=== PATIENT | male | born 1975 ===

== ENCOUNTER 2019-05-27 20:33 | Emergency (ER) | payer MEDICARE, MEDICAID ==
[2019-05-27 21:38] LABS: CHLORIDE,CL 104 mmol/L (101-111); SODIUM,NA 138 mmol/L (135-145)
--- NOTE | 2019-05-27 21:38 | EDM.PDOCBH ---
ED HPI GENERAL MEDICAL PROBLEM - General Chief Complaint: Behavioral/Psych Stated Complaint: SUICIDE THOUGHTS Time Seen by Provider: 05/27/19 20:40 Source of Information: Reports: Patient, Significant Other History Limitations: Reports: No Limitations - History of Present Illness INITIAL COMMENTS - FREE TEXT/NARRATIVE: ED with c/o of having suicidal thoughts, worse past week, Patient and friend drinking more frequently and heavier amounts. Last ETOH 1/2 beer last night. Has been at lest 2-3 times per week of 1/2 of large bottle of rum or vodka. Getting into arguments with outsole caser, payee and co workers. States, plan to by drinking to much. Hx remote OD on his medication years ago. States he has been taking medications as prescribed. Denies other drug use. Does not smoke. Last psych in March for medication renewal. Does not have counselor. - Related Data Allergies Allergy/AdvReac Type Severity Reaction Status Date / Time No Known Allergies Allergy Verified 05/27/19 20:49 Home Meds: Home Meds Albuterol [Ventolin HFA] 1 puff INH Q4H PRN 02/17/14 [History] risperiDONE [RisperiDAL] 1.5 mg PO BEDTIME 02/17/14 [History] Escitalopram [Lexapro] 10 mg PO DAILY 06/09/14 [History] ARIPiprazole [Aripiprazole] 2 mg PO DAILY 05/27/19 [History] Aspirin 81 mg PO DAILY 05/27/19 [History] Dapagliflozin Propanediol [Farxiga] 10 mg PO DAILY 05/27/19 [History] Insulin Aspart [NovoLOG] 10 unit SQ TIDMEALS 05/27/19 [History] Insulin Glarg,Human.Rec.Analog [Lantus] 24 unit SUBCUT BEDTIME 05/27/19 [History ] Linaclotide [Linzess] 145 mcg PO DAILY 05/27/19 [History] hydrOXYzine HCl [hydrOXYzine] 25 mg PO DAILY PRN 05/27/19 [History] metFORMIN HCl [Metformin HCl] 1,000 mg PO BID 05/27/19 [History] Past Medical History Other HEENT History: wears glasses Cardiovascular History: Reports: None Respiratory History: Reports: Asthma Gastrointestinal History: Reports: None Genitourinary History: Reports: Renal Calculus Musculoskeletal History: Reports: None Neurological History: Reports: None Psychiatric History: Reports: Depression, Psychosis, Schizophrenia Endocrine/Metabolic History: Reports: Diabetes, Type II Hematologic History: Reports: None Immunologic History: Reports: None Oncologic (Cancer) History: Reports: None Dermatologic History: Reports: None - Infectious Disease History Infectious Disease History: Reports: None - Past Surgical History Head Surgeries/Procedures: Reports: None Social & Family History - Family History Family Medical History: Unobtainable - Tobacco Use Smoking Status *Q: Former Smoker Used Tobacco, but Quit: No - Caffeine Use Caffeine Use: Reports: Soda - Alcohol Use Date of Last Drink: 05/26/19 - Recreational Drug Use Recreational Drug Use: No - Living Situation & Occupation Living situation: Reports: Single, Alone ED ROS GENERAL - Review of Systems Review Of Systems: ROS reveals no pertinent complaints other than HPI. ED EXAM, BEHAVIORAL HEALTH - Physical Exam Exam: See Below Exam Limited By: No Limitations General Appearance: Alert, No Apparent Distress Eye Exam: Bilateral Eye: EOMI, PERRL Ears: Normal External Exam, Hearing Grossly Normal Nose: Normal Inspection Throat/Mouth: Normal Oropharynx Head: Atraumatic, Normocephalic Respiratory/Chest: No Respiratory Distress, Lungs Clear Cardiovascular: Regular Rate, Rhythm Extremities: Normal Range of Motion Neurological: Alert, Normal Gait, Oriented x 3. No: Normal Cognition (mild cognitve defecit) Psychiatric: Alert, Normal Affect, Normal Mood, Oriented, Suicidal Thoughts. No : Poor Eye Contact, Auditory Hallucinations, Visual Hallucinations, Pressured Speech, Paranoid Thoughts, Threatening Behavior Skin Exam: Warm, Dry, Intact, Normal color COURSE, BEHAVIORAL HEALTH COMP - Course Vital Signs: Last Vital Signs Temp 97.6 F 05/27/19 22:54 Pulse 86 05/27/19 22:54 Resp 18 05/27/19 22:54 BP 125/69 05/27/19 22:54 Pulse Ox 100 05/27/19 22:54 Orders, Labs, Meds: Laboratory Tests 05/27/19 05/27/19 05/27/19 Range/Units 21:11 21:11 21:13 WBC 10.9 H (5.0-10.0) 10^3/uL RBC 5.34 (4.6-6.2) 10^6/uL Hgb 14.7 (14.0-18.0) g/dL Hct 45.9 (40.0-54.0) % MCV 86.0 (80-100) fL MCH 27.5 (27.0-34.0) pg MCHC 32.0 L (33.0-35.0) g/dL Plt Count 277 (150-450) 10^3/uL Neut % (Auto) 57.9 (42.2-75.2) % Lymph % (Auto) 28.4 (20.5-50.1) % Esmeralda % (Auto) 10.1 H (2-8) % Eos % (Auto) 3.0 (1.0-3.0) % Baso % (Auto) 0.6 (0.0-1.0) % Sodium 138 (135-145) mmol/L Potassium 4.0 (3.6-5.0) mmol/L Chloride 104 (101-111) mmol/L Carbon Dioxide 25.0 (21.0-31.0) mmol/L Anion Gap 13.0 BUN 8 (7-18) mg/dL Creatinine 0.7 (0.6-1.3) mg/dL Est Cr Clr Drug Dosing 134.67 mL/min Estimated GFR (MDRD) > 60 BUN/Creatinine Ratio 11.42 Glucose 241 H (74-105) mg/dL Calcium 8.9 (8.4-10.2) mg/dl Total Bilirubin 0.7 (0.2-1.0) mg/dL AST 23 (10-42) IU/L ALT 21 (10-60) IU/L Alkaline Phosphatase 47 (42-121) IU/L Total Protein 6.6 L (6.7-8.2) g/dl Albumin 3.8 (3.2-5.5) g/dl Globulin 2.8 Albumin/Globulin Ratio 1.36 Urine Color Yellow (YELLOW) Urine Appearance Clear (CLEAR) Urine pH 5.5 (5.0-9.0) Ur Specific Orcas 1.015 (1.005-1.030) Urine Protein Negative (NEGATIVE) Urine Glucose (UA) 500 H (NEGATIVE) Urine Ketones Negative (NEGATIVE) Urine Occult Blood Negative (NEGATIVE) Urine Nitrite Negative (NEGATIVE) Urine Bilirubin Negative (NEGATIVE) Urine Urobilinogen 2.0 H (0.2-1.0) mg/dL Ur Leukocyte Esterase Negative (NEGATIVE) Salicylates < 4 mg/dL Urine Opiates Screen (NEGATIVE) Ur Oxycodone Screen (NEGATIVE) Urine Methadone Screen (NEGATIVE) Acetaminophen < 10 ug/mL Ur Barbiturates Screen (NEGATIVE) U Tricyclic Antidepress (NEGATIVE) Ur Phencyclidine Scrn (NEGATIVE) Ur Amphetamine Screen (NEGATIVE) U Methamphetamines Scrn (NEGATIVE) Urine MDMA Screen (NEGATIVE) U Benzodiazepines Scrn (NEGATIVE) Urine Cocaine Screen (NEGATIVE) U Marijuana (THC) Screen (NEGATIVE) Ethyl Alcohol < 5 mg/dL 05/27/19 Range/Units 21:13 WBC (5.0-10.0) 10^3/uL RBC (4.6-6.2) 10^6/uL Hgb (14.0-18.0) g/dL Hct (40.0-54.0) % MCV (80-100) fL MCH (27.0-34.0) pg MCHC (33.0-35.0) g/dL Plt Count (150-450) 10^3/uL Neut % (Auto) (42.2-75.2) % Lymph % (Auto) (20.5-50.1) % Esmeralda % (Auto) (2-8) % Eos % (Auto) (1.0-3.0) % Baso % (Auto) (0.0-1.0) % Sodium (135-145) mmol/L Potassium (3.6-5.0) mmol/L Chloride (101-111) mmol/L Carbon Dioxide (21.0-31.0) mmol/L Anion Gap BUN (7-18) mg/dL Creatinine (0.6-1.3) mg/dL Est Cr Clr Drug Dosing mL/min Estimated GFR (MDRD) BUN/Creatinine Ratio Glucose (74-105) mg/dL Calcium (8.4-10.2) mg/dl Total Bilirubin (0.2-1.0) mg/dL AST (10-42) IU/L ALT (10-60) IU/L Alkaline Phosphatase (42-121) IU/L Total Protein (6.7-8.2) g/dl Albumin (3.2-5.5) g/dl Globulin Albumin/Globulin Ratio Urine Color (YELLOW) Urine Appearance (CLEAR) Urine pH (5.0-9.0) Ur Specific Orcas (1.005-1.030) Urine Protein (NEGATIVE) Urine Glucose (UA) (NEGATIVE) Urine Ketones (NEGATIVE) Urine Occult Blood (NEGATIVE) Urine Nitrite (NEGATIVE) Urine Bilirubin (NEGATIVE) Urine Urobilinogen (0.2-1.0) mg/dL Ur Leukocyte Esterase (NEGATIVE) Salicylates mg/dL Urine Opiates Screen Negative (NEGATIVE) Ur Oxycodone Screen Negative (NEGATIVE) Urine Methadone Screen Negative (NEGATIVE) Acetaminophen ug/mL Ur Barbiturates Screen Negative (NEGATIVE) U Tricyclic Antidepress Negative (NEGATIVE) Ur Phencyclidine Scrn Negative (NEGATIVE) Ur Amphetamine Screen Negative (NEGATIVE) U Methamphetamines Scrn Negative (NEGATIVE) Urine MDMA Screen Negative (NEGATIVE) U Benzodiazepines Scrn Negative (NEGATIVE) Urine Cocaine Screen Negative (NEGATIVE) U Marijuana (THC) Screen Negative (NEGATIVE) Ethyl Alcohol mg/dL Medications Discontinued Medications Generic Name Dose Route Start Last Admin Trade Name Freq PRN Reason Stop Dose Admin Insulin Human Regular 5 unit 05/27/19 22:47 05/27/19 22:56 Humulin R IV 05/27/19 22:48 Not Given ONETIME ONE Insulin Human Regular 5 unit 05/27/19 22:48 05/27/19 22:55 Humulin R IM 05/27/19 22:49 5 unit ONETIME ONE Administration Re-Assessment/Re-Exam: Debora, faculty i on call medical assistant Crisis Counselor From [facility] here assess patient,. Departure - Departure Time of Disposition: 22:23 Disposition: DC/Tfer to Other 70 Condition: Good Clinical Impression: Alcohol abuse, Verbalizes suicidal thoughts, Noncompliance w/medication treatment due to intermit use of medication - Discharge Information *PRESCRIPTION DRUG MONITORING PROGRAM REVIEWED*: No *COPY OF PRESCRIPTION DRUG MONITORING REPORT IN PATIENT RUBEN: No Instructions: Substance Use Disorder and Mental Illness Referrals: PCP,Unobtain [Primary Care Provider] - Forms: ED Department Discharge Additional Instructions: Don't drink alcohol Take medications as prescribed Follow up with Mental Health Provider
[2019-05-27 21:39] LABS: ACETAMINOPHEN < 10 ug/mL
[2019-05-27] MEDS ORDERED: Insulin Regular, Human 100 Units/ML 3 ML Vial IV ONE (22:47)
[2019-05-27] MEDS ORDERED: Insulin Regular, Human 100 Units/ML 3 ML Vial IM ONE (22:48)
[2019-05-27 22:54] VITALS: BP 125/69; PULSE 86
== END 2019-05-27 23:30 | disposition other institution (70) ==
LOC: DL.ED 20:33
DX: F10.10 Alcohol abuse, uncomplicated (principal); R45.851 Suicidal ideations; J45.909 Unspecified asthma, uncomplicated; E11.9 Type 2 diabetes mellitus without complications; F20.9 Schizophrenia, unspecified; F32.9 Major depressive disorder, single episode, unspecified; Z79.4 Long term (current) use of insulin; Z79.82 Long term (current) use of aspirin; Z79.899 Other long term (current) drug therapy; Z87.891 Personal history of nicotine dependence; Z91.14 Patient's other noncompliance with medication regimen
CPT/HCPCS: 36415; 80053; 80305; 81003; 82962; 85025; 99285; G0480; J1815; 99283

== ENCOUNTER 2020-05-19 01:44 | Emergency (ER) | payer MEDICARE, MEDICAID ==
--- NOTE | 2020-05-19 02:08 | EDM.PDOC ---
ED HPI GENERAL MEDICAL PROBLEM - General Stated Complaint: AMBULANCE Time Seen by Provider: 05/19/20 02:06 Source of Information: Reports: Patient History Limitations: Reports: No Limitations - History of Present Illness INITIAL COMMENTS - FREE TEXT/NARRATIVE: N&V past few days and BS been high. pain epiG region. - Related Data Allergies Allergy/AdvReac Type Severity Reaction Status Date / Time No Known Allergies Allergy Verified 05/19/20 02:42 Home Meds: Home Meds Escitalopram [Lexapro] 20 mg PO DAILY 06/09/14 [History] ARIPiprazole [Aripiprazole] 5 mg PO DAILY 05/27/19 [History] Aspirin 81 mg PO DAILY 05/27/19 [History] Dapagliflozin Propanediol [Farxiga] 10 mg PO DAILY 05/27/19 [History] Insulin Aspart [NovoLOG] 9 unit SQ TIDMEALS 05/27/19 [History] Insulin Glarg,Human.Rec.Analog [Lantus] 33 unit SUBCUT BEDTIME 05/27/19 [History] hydrOXYzine HCL [hydrOXYzine] 25 mg PO DAILY PRN 05/27/19 [History] metFORMIN HCl [Metformin HCl] 1,000 mg PO BID 05/27/19 [History] Ibuprofen 600 mg PO Q6H PRN 05/19/20 [History] Nutritional Supplements Tabs 4 tab PO ASDIRECTED PRN 05/19/20 [History] Rosuvastatin [Crestor] 5 mg PO DAILY 05/19/20 [History] Sildenafil [Viagra] 50 mg PO ASDIRECTED PRN 05/19/20 [History] Past Medical History Other HEENT History: wears glasses Cardiovascular History: Reports: None Respiratory History: Reports: Asthma Gastrointestinal History: Reports: None Genitourinary History: Reports: Renal Calculus Musculoskeletal History: Reports: None Neurological History: Reports: None Psychiatric History: Reports: Depression, Psychosis, Schizophrenia Endocrine/Metabolic History: Reports: Diabetes, Type II Hematologic History: Reports: None Immunologic History: Reports: None Oncologic (Cancer) History: Reports: None Dermatologic History: Reports: None - Infectious Disease History Infectious Disease History: Reports: None - Past Surgical History Head Surgeries/Procedures: Reports: None Social & Family History - Family History Family Medical History: Unobtainable - Caffeine Use Caffeine Use: Reports: Soda - Living Situation & Occupation Living situation: Reports: Single, Alone ED ROS GENERAL - Review of Systems Review Of Systems: Comprehensive ROS is negative, except as noted in HPI. ED EXAM, GI/ABD - Physical Exam Exam: See Below Exam Limited By: No Limitations General Appearance: Alert, WD/WN, Mild Distress, Other (discomfort). No: Active Emesis Ears: Hearing Grossly Normal Throat/Mouth: Normal Voice, No Airway Compromise Head: Atraumatic Neck: Non-Tender, Full Range of Motion Respiratory/Chest: No Respiratory Distress Cardiovascular: Regular Rate, Rhythm GI/Abdominal Exam: Tender, Other (epiG region). No: Distended, Guarding, Rebound (Male) Exam: Deferred Rectal (Males) Exam: Deferred Neurological: Alert, Oriented, Normal Cognition, Normal Gait, No Motor/Sensory Deficits Psychiatric: Normal Affect, Normal Mood Skin Exam: Warm, Dry, Normal Color Lymphatic: No Adenopathy Course - Vital Signs Last Recorded V/S: Last Vital Signs Temp 37.4 C 05/19/20 01:45 CLASSIFICATION COUNSELOR Pulse 101 H 05/19/20 01:45 CLASSIFICATION COUNSELOR Resp 14 05/19/20 01:45 CLASSIFICATION COUNSELOR BP 114/79 05/19/20 01:45 CLASSIFICATION COUNSELOR Pulse Ox 98 05/19/20 01:45 CLASSIFICATION COUNSELOR - Orders/Labs/Meds Orders: Active Orders 24 hr Category Date Time Status Blood Glucose Check, Bedside [RC] ONETIME Care 05/19/20 02:07 Active Labs: Laboratory Tests 05/19/20 05/19/20 05/19/20 Range/Units 02:30 02:30 03:02 WBC 7.7 (5.0-10.0) 10^3/uL RBC 5.62 (4.6-6.2) 10^6/uL Hgb 15.5 (14.0-18.0) g/dL Hct 47.3 (40.0-54.0) % MCV 84.2 (80-100) fL MCH 27.6 (27.0-34.0) pg MCHC 32.8 L (33.0-35.0) g/dL Plt Count 172 D (150-450) 10^3/uL Neut % (Auto) 62.4 (42.2-75.2) % Lymph % (Auto) 24.9 (20.5-50.1) % Garland % (Auto) 12.0 H (2-8) % Eos % (Auto) 0.4 L (1.0-3.0) % Baso % (Auto) 0.3 (0.0-1.0) % Sodium 135 L (136-145) mmol/L Potassium 4.2 (3.5-5.1) mmol/L Chloride 98 (98-107) mmol/L Carbon Dioxide 27 (21-32) mmol/L Anion Gap 14.2 H (7-13) mEq/L BUN 10 (7-18) mg/dL Creatinine 0.90 (0.70-1.30) mg/dL Est Cr Clr Drug Dosing 100.28 mL/min Estimated GFR (MDRD) > 60 BUN/Creatinine Ratio 11.1 (No establ ref range) Glucose 235 H (74-99) mg/dL POC Glucose 241 H (70-105) mg/dl Calcium 8.9 (8.5-10.1) mg/dL Total Bilirubin 0.4 (0.2-1.0) mg/dL AST 43 H (15-37) U/L ALT 60 (16-63) U/L Alkaline Phosphatase 64 (46-116) U/L Total Protein 7.2 (6.4-8.2) g/dL Albumin 3.6 (3.4-5.0) g/dL Globulin 3.6 Albumin/Globulin Ratio 1.0 Amylase 39 (25-115) U/L Lipase 77 (73-393) U/L Ketones Small-20 mg/dl - Re-Assessments/Exams Free Text/Narrative Re-Assessment/Exam: 05/19/20 03:21 results discussed with pt who is feeling fine presently. Departure - Departure Time of Disposition: 03:22 Disposition: Home, Self-Care 01 Condition: Good Clinical Impression: Vomiting, Hyperglycemia - Discharge Information Instructions: Hyperglycemia, [id number] Forms: ED Department Discharge Additional Instructions: 1) monitor your blood sugar closely 2) take your meds as directed 3) avoid solid foods next 24 hours 4) follow up at clinic Sepsis Event Note (ED) - Focused Exam Vital Signs: Vital Signs Temp Pulse Resp BP Pulse Ox 05/19/20 01:45 CLASSIFICATION COUNSELOR 37.4 C 101 H 14 114/79 98 - My Orders Last 24 Hours: My Active Orders 05/19/20 02:07 Blood Glucose Check, Bedside [RC] ONETIME - Assessment/Plan Last 24 Hours: My Active Orders 05/19/20 02:07 Blood Glucose Check, Bedside [RC] ONETIME
[2020-05-19 02:30] VITALS: BP 114/79; PULSE 101
[2020-05-19 03:04] LABS: ANION GAP 14.2 mEq/L (7-13); CHLORIDE,CL 98 mmol/L (98-107); SODIUM,NA 135 mmol/L (136-145)
== END 2020-05-19 03:32 | disposition home or self-care (01) ==
LOC: DL.ED 01:44
DX: E11.65 Type 2 diabetes mellitus with hyperglycemia (principal); J45.909 Unspecified asthma, uncomplicated; F32.9 Major depressive disorder, single episode, unspecified; Z79.82 Long term (current) use of aspirin; Z79.899 Other long term (current) drug therapy; Z79.4 Long term (current) use of insulin
CPT/HCPCS: 36415; 80053; 82009; 82150; 82962; 83690; 85025; 99285

== ENCOUNTER 2020-09-18 02:27 | Emergency (ER) | payer MEDICARE, MEDICAID ==
[2020-09-18] MEDS ORDERED: Albuterol/Ipratropium 3.0-0.5 MG/3 ML Neb Soln NEB ONE (02:30)
[2020-09-18 02:42] VITALS: BP 121/72; PULSE 106
--- NOTE | 2020-09-18 02:42 | EDM.PDOC ---
ED HPI GENERAL MEDICAL PROBLEM - General Chief Complaint: Respiratory Problem Stated Complaint: AMBULANCE Time Seen by Provider: 09/18/20 02:37 Source of Information: Reports: Patient, EMS, RN, RN Notes Reviewed History Limitations: Reports: No Limitations - History of Present Illness INITIAL COMMENTS - FREE TEXT/NARRATIVE: Patient presents to the ED via EMS with complaints of shortness of breath. The patient reports a history of asthma for which he is prescribed Albuterol for rescue therapy; he denies abortive therapy. He states he was examined in the clinic yesterday, 09/17/20, and his prescription for Albuterol was refilled, however he forgot to pick it up. He states his shortness of breath occurred this evening at approximately 2200 when he went to lay down in bed. He called for EMS services as he is currently out of his prescription. He denies recent illness, fever, shaking chills, sore throat, chest pain, palpitations, or dyspepsia. He does attest to dry, non-productive cough. The patient reports he received a dose of Albuterol via [facility] and has noted an ease in his breathing. Patient does attest to a history of COVID infection in late April 2020. Ad ditionally, the patient attests to a history of DMII for which he is prescribed NovoLog, Basaglar, Farxiga, and Metformin. He notes his blood sugar was high this evening, in the 300 range. He does state he took all of his medications, as prescribed. He denies tobacco, alcohol, or recreational drug use. - Related Data Allergies Allergy/AdvReac Type Severity Reaction Status Date / Time No Known Allergies Allergy Verified 09/18/20 02:45 Home Meds: Home Meds Escitalopram [Lexapro] 20 mg PO DAILY 06/09/14 [History] ARIPiprazole [Aripiprazole] 5 mg PO DAILY 05/27/19 [History] Aspirin 81 mg PO DAILY 05/27/19 [History] Dapagliflozin Propanediol [Farxiga] 10 mg PO DAILY 05/27/19 [History] Insulin Aspart [NovoLOG] 9 unit SQ TIDMEALS 05/27/19 [History] Insulin Glarg,Human.Rec.Analog [Lantus] 33 unit SUBCUT BEDTIME 05/27/19 [History] hydrOXYzine HCL [hydrOXYzine] 25 mg PO DAILY PRN 05/27/19 [History] metFORMIN HCl [Metformin HCl] 1,000 mg PO BID 05/27/19 [History] Ibuprofen 600 mg PO Q6H PRN 05/19/20 [History] Nutritional Supplements Tabs 4 tab PO ASDIRECTED PRN 05/19/20 [History] Rosuvastatin [Crestor] 5 mg PO DAILY 05/19/20 [History] Sildenafil [Viagra] 50 mg PO ASDIRECTED PRN 05/19/20 [History] Past Medical History Other HEENT History: wears glasses Cardiovascular History: Reports: None Respiratory History: Reports: Asthma Gastrointestinal History: Reports: None Genitourinary History: Reports: Renal Calculus Other Genitourinary History: erectile dysfunction Musculoskeletal History: Reports: None Neurological History: Reports: None Psychiatric History: Reports: Depression, Psychosis, Schizophrenia Other Psychiatric History: asperger's syndrome Endocrine/Metabolic History: Reports: Diabetes, Type II Hematologic History: Reports: None Immunologic History: Reports: None Oncologic (Cancer) History: Reports: None Dermatologic History: Reports: None - Infectious Disease History Infectious Disease History: Reports: None - Past Surgical History Head Surgeries/Procedures: Reports: None Social & Family History - Family History Family Medical History: Unobtainable - Caffeine Use Caffeine Use: Reports: Soda - Living Situation & Occupation Living situation: Reports: Single, Alone ED ROS GENERAL - Review of Systems Review Of Systems: Comprehensive ROS is negative, except as noted in HPI. ED EXAM, GENERAL - Physical Exam Exam: See Below Exam Limited By: No Limitations General Appearance: Alert, No Apparent Distress Eye Exam: Left Eye: Other (Esotropia) Ears: Normal External Exam, Normal Canal, Hearing Grossly Normal, Normal TMs Ear Exam: Bilateral Ear: Auricle Normal, Canal Normal, TM normal Nose: Normal Inspection, Normal Mucosa, No Blood Throat/Mouth: Normal Voice, No Airway Compromise Head: Atraumatic, Normocephalic Respiratory/Chest: No Respiratory Distress, Chest Non-Tender, Decreased Breath Sounds, Rales (To bilateral lower lobes), Wheezing (Expiratory ). No: Crackles, Rhonchi, Stridor, Accessory Muscle Use, Retractions, Prolonged Expiration Cardiovascular: Normal Peripheral Pulses, Regular Rate, Rhythm, No Edema, No Gallop, No JVD, No Murmur, No Rub, Tachycardia Peripheral Pulses: 2+: Radial (L), Radial (R) GI/Abdominal: Normal Bowel Sounds, Soft, Non-Tender, No Distention, No Mass, Pelvis Stable (Male) Exam: Deferred Rectal (Males) Exam: Deferred Back Exam: Normal Inspection, Full Range of Motion Extremities: Normal Inspection, Normal Range of Motion, Non-Tender, Normal Capillary Refill, No Pedal Edema Neurological: Alert, Oriented, CN II-XII Intact, Normal Cognition, No Motor/Sensory Deficits Psychiatric: Normal Affect, Normal Mood Skin Exam: Warm, Dry, Intact, Normal Color, No Rash. No: Ecchymosis, Erythema, Jaundice, Mottled, Pallor, Petechiae Course - Vital Signs Last Recorded V/S: Last Vital Signs Temp 98.3 F 09/18/20 02:27 Pulse 106 H 09/18/20 02:27 Resp 20 09/18/20 02:27 BP 121/72 09/18/20 02:27 Pulse Ox 96 09/18/20 02:27 - Orders/Labs/Meds Labs: Laboratory Tests 09/18/20 09/18/20 Range/Units 02:41 02:41 WBC 12.3 H (5.0-10.0) 10^3/uL RBC 5.30 (4.6-6.2) 10^6/uL Hgb 14.8 (14.0-18.0) g/dL Hct 45.0 (40.0-54.0) % MCV 84.9 (80-100) fL MCH 27.9 (27.0-34.0) pg MCHC 32.9 L (33.0-35.0) g/dL Plt Count 247 D (150-450) 10^3/uL Neut % (Auto) 66.2 (42.2-75.2) % Lymph % (Auto) 18.5 L (20.5-50.1) % Morrow % (Auto) 9.9 H (2-8) % Eos % (Auto) 4.8 H (1.0-3.0) % Baso % (Auto) 0.6 (0.0-1.0) % Sodium 139 (136-145) mmol/L Potassium 3.9 (3.5-5.1) mmol/L Chloride 100 (98-107) mmol/L Carbon Dioxide 29 (21-32) mmol/L Anion Gap 13.9 H (7-13) mEq/L BUN 8 (7-18) mg/dL Creatinine 0.81 (0.70-1.30) mg/dL Est Cr Clr Drug Dosing 118.91 mL/min Estimated GFR (MDRD) > 60 BUN/Creatinine Ratio 9.9 (No establ ref range) Glucose 258 H (74-99) mg/dL Calcium 9.0 (8.5-10.1) mg/dL Total Bilirubin 0.4 (0.2-1.0) mg/dL AST 11 L (15-37) U/L ALT 32 (16-63) U/L Alkaline Phosphatase 80 (46-116) U/L C-Reactive Protein 1.0 H (0.0-0.9) mg/dL Total Protein 7.2 (6.4-8.2) g/dL Albumin 3.7 (3.4-5.0) g/dL Globulin 3.5 Albumin/Globulin Ratio 1.1 Meds: Medications Discontinued Medications Generic Name Dose Route Start Last Admin Trade Name Freq PRN Reason Stop Dose Admin Albuterol/Ipratropium 3 ml 09/18/20 02:30 09/18/20 02:49 Duoneb 3.0-0.5 Mg/3 Ml NEB 09/18/20 02:31 3 ml ONETIME ONE Administration Amoxicillin/Clavulanate Potassium 1 tab 09/18/20 03:55 09/18/20 04:01 Augmentin 875 Mg/125 Mg PO 09/18/20 03:56 1 tab ONETIME ONE Administration Prednisone 40 mg 09/18/20 03:55 09/18/20 04:01 Prednisone PO 09/18/20 03:56 40 mg ONETIME ONE Administration - Radiology Interpretation Free Text/Narrative:: [facility] Final Radiology Report Call: [phone] assistance Online chat: [email or web address] Name: FARZANA SANDERS Age: 44Years M Date: 09/18/2020 SSN: -- : [id number] Study: CR CHEST 1V FRONTAL Requesting Physician: Tiarra Hernandez Images: 1 Addl Studies: Provided Clinical History: Shortness of breath; Hx of asthma Contrast: Contrast Medium: Contrast Amount: Contrast Method: CONFIDENTIALITY STATEMENT This report is intended only for use by the referring physician, and only in accordance with law. If you received this in error, call [phone]. Page 1 of 1 PROCEDURE INFORMATION: Exam: XR Chest Exam date and time: 09/18/2020 2:57 AM Age: 44 years old Clinical indication: Other: Shortness of breath; HX of asthma TECHNIQUE: Imaging protocol: XR of the chest Views: 1 view. COMPARISON: CR Chest 2V 12/03/2014 4:54 AM FINDINGS: Lungs: Unremarkable. No consolidation. Pleural spaces: Unremarkable. No pleural effusion. No pneumothorax. Heart/Mediastinum: Unremarkable. No cardiomegaly. Bones/joints: Unremarkable. IMPRESSION: No acute findings. Thank you for allowing us to participate in the care of your patient. Dictated and Authenticated by: Ana Lentz MD 09/18/2020 3:37 AM Central Time ([place] & [place]) - Re-Assessments/Exams Free Text/Narrative Re-Assessment/Exam: 09/18/20 Patient reports improvement in work of breathing following DuoNeb. CBC remarkable for mild elevation in WBC at 12. Rales noted to lower lung bases. CXR via [facility] unremarkable for acute processes; screen writer notes a possible small consolidation to right medial lung. Given physical exam and elevated WBC will treat for CAP. Will treat acute asthma exacerbation with Prednisone 40mg burst and CAP with Augmentin 875mg. Patient's glucose elevated at 250+, likely due to stress response. Patient counseled to monitor blood sugars closely while taking steroids and during acute phases of illness. Discussed findings of imaging, examination, and lab work with patient. Red flag signs and symptoms which would warrant reevaluation reviewed. Patient verbalized understanding and agreement with the plan of care. Departure - Departure Time of Disposition: 03:44 Disposition: Home, Self-Care 01 Condition: Good Clinical Impression: Hyperglycemia Exacerbation of asthma Qualifiers: Asthma severity: mild Asthma persistence: intermittent Qualified Code(s): J45.21 - Mild intermittent asthma with (acute) exacerbation CAP (community acquired pneumonia) Qualifiers: Laterality: right Lung location: lower lobe of lung Qualified Code(s): J18.9 - Pneumonia, unspecified organism - Discharge Information *PRESCRIPTION DRUG MONITORING PROGRAM REVIEWED*: Not Applicable *COPY OF PRESCRIPTION DRUG MONITORING REPORT IN PATIENT RUBEN: Not Applicable Instructions: Hyperglycemia, [id number], Asthma, Adult, [id number] Referrals: Andrade Faustin NP [Primary Care Provider] - Forms: ED Department Discharge Additional Instructions: Rx: Prednisone Rx: Augmentin 1.) Obtain your Albuterol inhaler from the pharmacy first thing tomorrow morning. 2.) Follow up with your primary care provider regarding today's visit. 3.) Follow a diabetic-friendly diet; continue with your previously prescribed antidiabetic medications. 4.) Your blood sugars will increase while on a steroid, continue to monitor closely. 5.) Take all of your antibiotic until it is gone.
[2020-09-18 03:05] LABS: ANION GAP 13.9 mEq/L (7-13); CHLORIDE,CL 100 mmol/L (98-107); SODIUM,NA 139 mmol/L (136-145)
--- NOTE | 2020-09-18 03:37 | CR ---
PROCEDURE INFORMATION: Exam: XR Chest Exam date and time: 09/18/2020 2:57 AM Age: 44 years old Clinical indication: Other: Shortness of breath; HX of asthma TECHNIQUE: Imaging protocol: XR of the chest Views: 1 view. COMPARISON: CR Chest 2V 12/03/2014 4:54 AM FINDINGS: Lungs: Unremarkable. No consolidation. Pleural spaces: Unremarkable. No pleural effusion. No pneumothorax. Heart/Mediastinum: Unremarkable. No cardiomegaly. Bones/joints: Unremarkable. IMPRESSION: No acute findings.
[2020-09-18] MEDS ORDERED: Amoxicillin/Clavulanate K 875-125 MG Tab PO ONE (03:55)
[2020-09-18] MEDS ORDERED: predniSONE 20 MG Tab PO ONE (03:55)
== END 2020-09-18 04:04 | disposition home or self-care (01) ==
LOC: DL.ED 02:27
DX: J18.9 Pneumonia, unspecified organism (principal); J45.21 Mild intermittent asthma with (acute) exacerbation; E11.65 Type 2 diabetes mellitus with hyperglycemia; Z79.82 Long term (current) use of aspirin; Z79.4 Long term (current) use of insulin; Z79.899 Other long term (current) drug therapy
CPT/HCPCS: 36415; 71045; 80053; 85025; 86140; 94640; 99285; A9270; J7512; 99284; J7620-GY

== ENCOUNTER 2021-07-25 11:37 | Emergency (ER) | payer MEDICARE, MEDICAID ==
[2021-07-25 11:54] VITALS: BP 107/77; PULSE 102
--- NOTE | 2021-07-25 13:06 | EDM.PDOC ---
ED HPI GENERAL MEDICAL PROBLEM - General Chief Complaint: Diabetic Complaint Stated Complaint: DIABETES CHECK Time Seen by Provider: 07/25/21 12:30 Source of Information: Reports: Patient History Limitations: Reports: No Limitations - History of Present Illness INITIAL COMMENTS - FREE TEXT/NARRATIVE: 45 y/o M here today for elevated blood sugars. He reports his sugars at home h ave been over 300. He took his regular insulin before coming here and his bedside glucose was around 270. The pt states he has not been remembering to take his long acting insulin at 930pm every evening for the last 4 days because the anabelle he has on his phone that remind him to take it disappeared off the phone. He reports no physial medical complaints, no increased thirst, increaed urination, fatigue, NVD, cp, db, abd pn, ext pain. - Related Data Allergies Allergy/AdvReac Type Severity Reaction Status Date / Time No Known Allergies Allergy Verified 07/25/21 12:00 Home Meds: Home Meds Escitalopram [Lexapro] 20 mg PO DAILY 06/09/14 [History] ARIPiprazole [Aripiprazole] 5 mg PO DAILY 05/27/19 [History] Aspirin 81 mg PO DAILY 05/27/19 [History] Dapagliflozin Propanediol [Farxiga] 10 mg PO DAILY 05/27/19 [History] Insulin Aspart [NovoLOG] 16 unit SQ TIDMEALS 05/27/19 [History] Insulin Glarg,Human.Rec.Analog [Lantus] 40 unit SUBCUT BEDTIME 05/27/19 [History] hydrOXYzine HCL [hydrOXYzine] 25 mg PO DAILY PRN 05/27/19 [History] metFORMIN HCl [Metformin HCl] 1,000 mg PO BID 05/27/19 [History] Ibuprofen 600 mg PO Q6H PRN 05/19/20 [History] Nutritional Supplements Tabs 4 tab PO ASDIRECTED PRN 05/19/20 [History] Rosuvastatin [Crestor] 5 mg PO DAILY 05/19/20 [History] Sildenafil [Viagra] 50 mg PO ASDIRECTED PRN 05/19/20 [History] Past Medical History Other HEENT History: wears glasses Cardiovascular History: Reports: None Respiratory History: Reports: Asthma Gastrointestinal History: Reports: None Genitourinary History: Reports: Renal Calculus Other Genitourinary History: erectile dysfunction Musculoskeletal History: Reports: None Neurological History: Reports: None Psychiatric History: Reports: Depression, Psychosis, Schizophrenia Other Psychiatric History: asperger's syndrome Endocrine/Metabolic History: Reports: Diabetes, Type II Hematologic History: Reports: None Immunologic History: Reports: None Oncologic (Cancer) History: Reports: None Dermatologic History: Reports: None - Infectious Disease History Infectious Disease History: Reports: None - Past Surgical History Head Surgeries/Procedures: Reports: None Social & Family History - Family History Family Medical History: Unobtainable - Tobacco Use Tobacco Use Status *Q: Unknown Ever Used Tobacco - Caffeine Use Caffeine Use: Reports: Tea - Recreational Drug Use Recreational Drug Use: No - Living Situation & Occupation Living situation: Reports: Single, Alone ED ROS GENERAL - Review of Systems Review Of Systems: Comprehensive ROS is negative, except as noted in HPI. ED EXAM GENERAL NO PERIP PULSE - Physical Exam Exam: See Below Exam Limited By: No Limitations General Appearance: Alert, No Apparent Distress Eye Exam: Bilateral Eye: PERRL Respiratory/Chest: No Respiratory Distress, Lungs Clear, Normal Breath Sounds, No Accessory Muscle Use, Chest Non-Tender Cardiovascular: Normal Peripheral Pulses, Regular Rate, Rhythm, No Edema, No Gallop, No JVD, No Murmur, No Rub GI/Abdominal: Soft, Non-Tender (Male) Exam: Deferred Rectal (Males) Exam: Deferred Back Exam: Normal Inspection, Full Range of Motion, NT Extremities: Normal Inspection, Normal Range of Motion, Non-Tender, Normal Capillary Refill, No Pedal Edema Neurological: Alert Skin Exam: Warm, Dry, Intact Course - Vital Signs Last Recorded V/S: Last Vital Signs Temp 97.6 F 07/25/21 11:50 Pulse 102 H 07/25/21 11:50 Resp 16 07/25/21 11:50 BP 107/77 07/25/21 11:50 Pulse Ox 96 07/25/21 11:50 - Orders/Labs/Meds Labs: Laboratory Tests 07/25/21 Range/Units 11:45 POC Glucose 271 H (70-99) mg/dL Departure - Departure Time of Disposition: 13:04 Disposition: Home, Self-Care 01 Condition: Good Clinical Impression: Hyperglycemia - Discharge Information *PRESCRIPTION DRUG MONITORING PROGRAM REVIEWED*: Not Applicable *COPY OF PRESCRIPTION DRUG MONITORING REPORT IN PATIENT RUBEN: Not Applicable Forms: ED Department Discharge Additional Instructions: Go to [facility] and have the diabetic specialist ut the anabelle back on your phone that reminds your to take your long acting insulin. Conitnue to take both of your insulins as prescribed. If any new symptoms or concerns develop contact your primary care facility or return to the ER. Sepsis Event Note (ED) - Evaluation Sepsis Screening Result: No Definite Risk - Focused Exam Vital Signs: Vital Signs Temp Pulse Resp BP Pulse Ox 07/25/21 11:50 97.6 F 102 H 16 107/77 96
== END 2021-07-25 13:13 | disposition home or self-care (01) ==
LOC: DL.ED 11:37
DX: E11.65 Type 2 diabetes mellitus with hyperglycemia (principal); Z79.82 Long term (current) use of aspirin; Z79.4 Long term (current) use of insulin
CPT/HCPCS: 82947; 99284

== ENCOUNTER 2021-10-22 14:30 | Emergency (ER) | payer MEDICARE, MEDICAID ==
[2021-10-22 14:52] LABS: O2 DELIVERY DEVICE ROOM AIR
[2021-10-22 14:57] LABS: BICARBONATE,VENOUS 24 mmol/l (19-25); O2 SATURATION VENOUS 82 % (60-80); PCO2 VENOUS 43 mmHg (41-51); PH,VENOUS 7.37 (7.31-7.41); PO2 VENOUS 43 mmHg (35-42)
[2021-10-22 14:58] LABS: BASE EXCESS VENOUS -0.7 mmol/l ((-2)-(+3))
[2021-10-22 15:12] LABS: ANION GAP 16.8 mEq/L (7-13); CHLORIDE,CL 100 mmol/L (98-107); SODIUM,NA 137 mmol/L (136-145)
[2021-10-22 15:46] VITALS: BP 135/93; PULSE 90
== END 2021-10-22 16:16 | disposition home or self-care (01) ==
LOC: DL.ED 14:30
DX: E11.65 Type 2 diabetes mellitus with hyperglycemia (principal); Z79.4 Long term (current) use of insulin; Z79.899 Other long term (current) drug therapy
CPT/HCPCS: 36415; 80053; 81001; 82009; 82803; 82947; 83605; 85025; 99283; 99284

== ENCOUNTER 2025-03-08 07:22 | Day surgery (SDC) | payer MEDICARE, MEDICAID ==
[~2025-03-08 07:22] MED LIST: Propofol 200 MG/20 ML SDV ONE
[2025-03-08] MEDS ORDERED: Lactated Ringers 1,000 ML IV ONE (07:23)
[2025-03-08] MEDS ORDERED: Propofol 200 MG/20 ML SDV IV ONE (07:23)
[2025-03-08] MEDS: Lactated Ringers 1,000 ML IV SCH (08:03)
[2025-03-08] MEDS ORDERED: Propofol 200 MG/20 ML SDV ONE (08:39)
[2025-03-08 09:48] VITALS: BP 120/66; PULSE 83
== END 2025-03-08 10:17 | disposition home or self-care (01) ==
LOC: DL.ENDO 07:22
PROVIDERS: ATTEND Internal Medicine Gastroenterology
DX: Z12.11 Encounter for screening for malignant neoplasm of colon (principal); D12.2 Benign neoplasm of ascending colon; D12.3 Benign neoplasm of transverse colon; K64.4 Residual hemorrhoidal skin tags; K64.8 Other hemorrhoids; J45.909 Unspecified asthma, uncomplicated; E11.9 Type 2 diabetes mellitus without complications; K21.9 Gastro-esophageal reflux disease without esophagitis; E66.09 Other obesity due to excess calories; Z68.31 Body mass index [BMI] 31.0-31.9, adult; Z79.899 Other long term (current) drug therapy
CPT/HCPCS: 00811; 45385; 88305; J2003; J2704; J7120